=== PATIENT | female | born 1960 | race Caucasian/White ===

== ENCOUNTER 2016-05-24 20:51 | Observation (INO) | payer BC ==
[~2016-05-24] VITALS: Ht 165.1 cm; Wt 91.9 kg
[2016-05-24 21:23] LABS: HEMATOCRIT 40.5 % (36.0-46.0); MCH 27.8 PG (29.0-34.0); MCHC 32.6 G/DL (30.0-36.0); MCV 85.4 FL (83-99); MEAN PLAT.VOLUME 10.9 uM^3 (9.5-12.4); PLATELET COUNT 255 K/uL (156-360); RBC DIS.WIDTH-CV 13.9 % (11.8-14.6); RBC DIS.WIDTH-SD 43.4 % (39-53); RED BLOOD COUNT 4.74 M/uL (3.80-5.20); WHITE BLOOD COUNT 7.1 K/uL (4.1-10.2)
[2016-05-24 21:35] LABS: PROTHROMBIN TIME 10.3 (9.2-11.2); PTT 30.3 (25-32)
[2016-05-24 21:43] LABS: CHLORIDE 102 mEq/L (99-109); POTASSIUM 4.4 mEq/L (3.7-5.4); SODIUM 138 mEq/L (136-147)
[2016-05-24 21:45] LABS: GLUCOSE 211 mg/dL (70-99)
[2016-05-24 21:47] LABS: ANION GAP 8 MEQ/L (2-14); TOTAL BILIRUBIN 0.3 mg/dL (0.0-1.0)
[2016-05-24 21:47] LABS: ADD MIUA? NO; BILIRUBIN NEGATIVE; BLOOD NEGATIVE; COLOR YELLOW ((YELLOW)); GLUCOSE (STRIP) NEGATIVE; KETONES NEGATIVE; LEUKOCYTES NEGATIVE; NITRITE NEGATIVE; PROTEIN (STRIP) NEGATIVE; SPECIFIC GRAVITY 1.008 (1.000-1.030); UCUL ADDED? NO; UROBILINOGEN 0.2 MG/DL (0.2-1.0)
[2016-05-24 21:49] LABS: ALKALINE PHOSPHATASE 106 IU/L (3-129); GFR ESTIMATE (CALCULATED) 54 mL/min/
[2016-05-24 21:50] LABS: UREA NITROGEN (BUN) 23 mg/dL (9-23)
[2016-05-24 21:51] LABS: DIRECT BILIRUBIN 0.1 mg/dL (0.0-0.3)
[2016-05-24 21:53] LABS: TROP-I INTERPRETATION NEGATIVE; TROPONIN-I 0.01 ng/mL (0.0-0.30)
[2016-05-24] MEDS ORDERED: METFORMIN HCL500 MG PO (23:17)
[2016-05-24] MEDS ORDERED: GLIMEPIRIDE1 MG PO (23:18)
[2016-05-24] MEDS ORDERED: JANUVIA100 MG PO (23:18)
[2016-05-24] MEDS ORDERED: DAILY VALUE1 EACH PO (23:19)
[2016-05-24] MEDS ORDERED: OMEPRAZOLE20 MG PO (23:19)
[2016-05-24] MEDS ORDERED: B-COMPLEX-VITA1 EACH PO (23:20)
[2016-05-24] MEDS ORDERED: VITAMIN C500 M1 PO (23:20)
[2016-05-24] MEDS ORDERED: VITAMIN E100 UNIT PO (23:21)
[2016-05-24] MEDS ORDERED: VITAMIN D31000 UNIT PO (23:21)
[2016-05-24] MEDS ORDERED: FISH OIL300 MG PO (23:21)
[2016-05-24] MEDS ORDERED: GLUCOSAMINE1000 MG PO (23:22)
[2016-05-25 00:04] LABS: SAMPLE HEMOLYSIS CHECK 1; SAMPLE ICTERIC CHECK 0; SAMPLE LIPEMIA CHECK 1
[2016-05-25 00:09] LABS: HDL CHOLESTEROL 38 MG/DL (Desirable>=50); LDL CHOLESTEROL 95 mg/dL (Desirable<100); NON-HDL CHOLESTEROL 157 mg/dL (Desirable<160); TOTAL CHOLESTEROL 195 mg/dL (Desirable<200); TRIGLYCERIDES 312 MG/DL (Normal: <150)
[2016-05-25 00:30] VITALS: BP 139/76
[2016-05-25 00:57] VITALS: BP 139/76
[2016-05-25 04:09] VITALS: BP 137/81
[2016-05-25 07:26] LABS: Estimated Average Glucose 180 mg/dL (70-123); HEMOGLOBIN A1c (GLYCOHEMOGLOB) 7.9 % HGB (Below 5.7)
[2016-05-25 07:40] VITALS: BP 128/84
[2016-05-25 11:19] VITALS: BP 148/81
[2016-05-25] MEDS ORDERED: ASPIR-LOW81 MG PO (14:28)
[2016-05-25] MEDS ORDERED: ATORVASTATIN CA10 MG PO (14:28)
[2016-05-25] MEDS ORDERED: ATORVASTATIN CA40 MG PO (14:45)
== END 2016-05-25 15:24 | disposition home or self-care (01) ==
LOC: EME 20:51 → EDOF 22:36 → 5SOUTH 22:36
PROVIDERS: Emergency Medicine; Physician Assistant
DX: G45.9 Transient cerebral ischemic attack, unspecified (principal); E11.9 Type 2 diabetes mellitus without complications; E78.1 Pure hyperglyceridemia
CPT/HCPCS: 70450; 70551; 71010; 80048; 80061; 80076; 81003; 83036; 84484; 85027; 85610; 85730; 92610 GN; 93005; 93306; 93880; 99281; 99285; G0378